=== PATIENT | female | born 1985 | race African-American/Black ===

== ENCOUNTER 2017-05-17 09:49 | Emergency (ER) | payer MEDICAID, OTHER ==
[~2017-05-17] VITALS: Ht 165.1 cm; Wt 75.0 kg
[2017-05-17] MEDS ORDERED: KETOROLAC 30MG/ML VIAL IV ONE (11:00)
[2017-05-17 12:55] VITALS: BP 131/81
== END 2017-05-17 12:55 | disposition home or self-care (01) ==
LOC: ER 10:30
DX: R07.89 Other chest pain (principal); F45.8 Other somatoform disorders; R03.0 Elevated blood-pressure reading, without diagnosis of hypertension; F17.210 Nicotine dependence, cigarettes, uncomplicated
CPT/HCPCS: 81025; 93005; 96374; 99284; J1885; Z7610